=== PATIENT | female | born 1955 | race African-American/Black ===

== ENCOUNTER 2022-06-20 10:15 | Outpatient (CLI) | payer MEDICARE, BC ==
[2022-06-20 11:56] LABS: INR-International Normal Ratio 1.1; PTT 30.4 sec (22.0-33.0); Prothrombin Time 11.4 sec (9.5-12.1)
[2022-06-20 11:59] LABS: Anion Gap 12 mmol/L (10-20); BUN (Urea Nitrogen) 11 mg/dL (9.8-20.1); Calc. Creatinine Clearance 0 mL/min (70-130); Calcium 9.5 mg/dL (7.8-10.44); Carbon Dioxide 30 mmol/L (23-31); Chloride 103 mmol/L (98-107); Estimated GFR 63; Glucose 100 mg/dL (80-115); Potassium 3.3 mmol/L (3.5-5.1); Sodium 142 mmol/L (136-145)
== END 2022-06-20 10:16 | disposition home or self-care (01) ==
LOC: LABBT 10:15
PROVIDERS: ATTEND Internal Medicine Cardiovascular Disease
DX: Z01.812 Encounter for preprocedural laboratory examination (principal); I48.19 Other persistent atrial fibrillation
CPT/HCPCS: 80048; 85610; 85730

== ENCOUNTER 2022-07-25 14:35 | Outpatient (CLI) | payer MEDICARE, BC | END 2022-07-25 14:36 | disposition home or self-care (01) | LOC: BICMAMMO 14:35 | PROVIDERS: ATTEND Family Medicine | DX: Z12.31 Encounter for screening mammogram for malignant neoplasm of breast (principal); N95.9 Unspecified menopausal and perimenopausal disorder; M85.80 Other specified disorders of bone density and structure, unspecified site | CPT/HCPCS: 77063; 77067; 77080 ==

== ENCOUNTER 2023-03-06 14:14 | Outpatient (CLI) | payer MEDICARE, BC | END 2023-03-06 14:15 | disposition home or self-care (01) | LOC: RAD 14:14 | PROVIDERS: ATTEND Family Medicine | DX: M25.561 Pain in right knee (principal); M25.562 Pain in left knee; M17.0 Bilateral primary osteoarthritis of knee ==

== ENCOUNTER 2023-08-08 13:21 | Outpatient (CLI) | payer MEDICARE, BC | END 2023-08-08 13:22 | disposition home or self-care (01) | LOC: BICMAMMO 13:21 | PROVIDERS: ATTEND Family Medicine | DX: Z12.31 Encounter for screening mammogram for malignant neoplasm of breast (principal); Z80.3 Family history of malignant neoplasm of breast | CPT/HCPCS: 77063; 77067 ==

== ENCOUNTER 2024-08-26 10:26 | Outpatient (CLI) | payer MEDICARE, BC | END 2024-08-26 10:27 | disposition home or self-care (01) | LOC: BICMAMMO 10:26 | PROVIDERS: ATTEND Family Medicine | DX: Z12.31 Encounter for screening mammogram for malignant neoplasm of breast (principal); Z78.0 Asymptomatic menopausal state; M85.89 Other specified disorders of bone density and structure, multiple sites; Z80.3 Family history of malignant neoplasm of breast | CPT/HCPCS: 77063; 77067; 77080 ==

== ENCOUNTER 2025-02-17 08:13 | Outpatient (CLI) | payer MEDICARE, BC ==
[2025-02-17 08:55] LABS: Estimated GFR - POC 70.0
[2025-02-17] MEDS ORDERED: Iopamidol 370 76% 100 ML VIAL ONE (09:51)
== END 2025-02-17 08:14 | disposition home or self-care (01) ==
LOC: CT 08:13
PROVIDERS: ATTEND Family Medicine
DX: R10.13 Epigastric pain (principal); K44.9 Diaphragmatic hernia without obstruction or gangrene; M47.815 Spondylosis without myelopathy or radiculopathy, thoracolumbar region; N20.0 Calculus of kidney; M54.6 Pain in thoracic spine; I77.89 Other specified disorders of arteries and arterioles; Z98.890 Other specified postprocedural states
CPT/HCPCS: 36415; 74178; 82565; Q9967

== ENCOUNTER 2025-05-20 10:59 | Emergency (ER) | payer MEDICARE, BC ==
[2025-05-20] MEDS ORDERED: Ketorolac Tromethamine 30 MG (1 mL) VIAL ONE (11:51)
[2025-05-20] MEDS ORDERED: Dexamethasone 10 MG/ML VIAL ONE (11:51)
== END 2025-05-20 13:48 | disposition home or self-care (01) ==
LOC: ERS 10:59
DX: S39.012A Strain of muscle, fascia and tendon of lower back, initial encounter (principal); M48.36 Traumatic spondylopathy, lumbar region; I48.91 Unspecified atrial fibrillation; I10 Essential (primary) hypertension; Z87.891 Personal history of nicotine dependence; X50.1XXA Overexertion from prolonged static or awkward postures, initial encounter
CPT/HCPCS: 72131; J1100; J1885; J2060; J2272; 96374; 96375

== ENCOUNTER 2025-05-22 09:11 | Emergency (ER) | payer MEDICARE, BC ==
[2025-05-22] MEDS ORDERED: HYDROcodone/Acetaminophen 5/325 mg Tablet ONE (10:15)
[2025-05-22] MEDS ORDERED: Ketorolac Tromethamine 30 MG (1 mL) VIAL ONE (10:15)
== END 2025-05-22 10:34 | disposition home or self-care (01) ==
LOC: ERS 09:11
DX: S39.012A Strain of muscle, fascia and tendon of lower back, initial encounter (principal); M62.830 Muscle spasm of back; I10 Essential (primary) hypertension; X50.0XXA Overexertion from strenuous movement or load, initial encounter; Z87.891 Personal history of nicotine dependence
CPT/HCPCS: 96372; 99282; J1885

== ENCOUNTER 2025-05-27 12:56 | Outpatient (CLI) | payer MEDICARE, BC ==
[2025-05-27 14:32] LABS: Estimated GFR - POC 38.0
== END 2025-05-27 12:57 | disposition home or self-care (01) ==
LOC: MRI 12:56
PROVIDERS: ATTEND Nurse Practitioner Family
DX: M47.816 Spondylosis without myelopathy or radiculopathy, lumbar region (principal); M48.061 Spinal stenosis, lumbar region without neurogenic claudication; M48.07 Spinal stenosis, lumbosacral region
CPT/HCPCS: 36415; 72158; 82565

== ENCOUNTER 2025-06-09 06:03 | Day surgery (SDC) | payer MEDICARE, BC ==
[2025-06-07 15:38] VITALS: BMI 53.6
[2025-06-09] MEDS ORDERED: PROPOFOL 200 MG/20 ML VIAL ONE (09:03)
== END 2025-06-09 10:00 | disposition home or self-care (01) ==
LOC: SDC 06:03
PROVIDERS: ATTEND Internal Medicine Gastroenterology
PROC: 0DB38ZX Excision of Lower Esophagus, Via Natural or Artificial Opening Endoscopic, Diagnostic (ICD-10-PCS; principal; 2025-06-09)
DX: K21.00 Gastro-esophageal reflux disease with esophagitis, without bleeding (principal); K44.9 Diaphragmatic hernia without obstruction or gangrene; I10 Essential (primary) hypertension; E11.9 Type 2 diabetes mellitus without complications; Z98.84 Bariatric surgery status; Z90.710 Acquired absence of both cervix and uterus
CPT/HCPCS: 43239; J2704; 88305; 88312